=== PATIENT | female | born 1945 | race Caucasian/White ===

== ENCOUNTER 2021-05-24 13:02 | Emergency (ER) | payer OTHER ==
[2021-05-24 16:38] VITALS: BP 140/78; PULSE 78; TEMP 96.7; BMI 32.9
[2021-05-24 17:14] LABS: BASO % 0.9 % (0-2.0); EOS % 5.2 % (0-4.5); HEMOGLOBIN 11.3 GM/dL (10.7-15.3); LYMPH % 15.4 % (8-40); MCH 31.8 pg (25.7-33.7); MCHC 34.1 g/dl (32.0-36.0); MEAN CELL VOLUME 93.3 fl (80-96); MEAN PLT VOLUME 9.2 fl (7.5-11.1); MONO % 5.3 % (3.8-10.2); NEUT % 73.2 % (42.8-82.8); PLATELET COUNT 283 10^3/uL (134-434); RBC 3.54 M/mm3 (3.60-5.2); RDW 13.2 % (11.6-15.6); WHITE BLOOD COUNT 9.2 K/mm3 (4.0-10.0)
[2021-05-24 17:28] LABS: CHLORIDE 105 mmol/L (98-107); SODIUM 140 mmol/L (136-145)
[2021-05-24 17:31] LABS: ALBUMIN 4.1 g/dl (3.4-5.0); ANION GAP 9 MMOL/L (8-16); BLOOD UREA NITROGEN 30.1 mg/dL (7-18); CALCIUM 9.9 mg/dL (8.5-10.1); CO2 26 mmol/L (21-32); GLUCOSE,RANDOM 87 mg/dL (74-106)
[2021-05-24 17:35] LABS: BILIRUBIN,TOTAL 0.2 mg/dL (0.2-1); CREATININE 1.4 mg/dL (0.55-1.3); SGOT/AST 21 U/L (15-37); SGPT/ALT 34 U/L (13-61)
[2021-05-24 17:36] LABS: TOT PROT 7.5 g/dl (6.4-8.2)
[2021-05-24 17:37] LABS: ALK PHOS 156 U/L (45-117)
[2021-05-24] MEDS ORDERED: SODIUM CHLORIDE 0.9% 500 ML INFUS.BAG IV ONE (17:43)
[2021-05-24] MEDS ORDERED: ACETAMINOPHEN 1000 MG/100 ML VIAL (NON FORMULARY) IVPB ONE (18:08)
[2021-05-24] MEDS ORDERED: ACETAMINOPHEN INJECTION 100 ML IVPB ONE (18:09)
[2021-05-24] MEDS ORDERED: LIDOCAINE HCL 2% JELLY 10 ML CARTRIDGE ONE (18:19)
[2021-05-24 18:45] LABS: CALCIUM 9.9 mg/dL (8.5-10.1)
[2021-05-24 18:46] LABS: ALBUMIN 3.9 g/dl (3.4-5.0); BLOOD UREA NITROGEN 27.3 mg/dL (7-18)
[2021-05-24 18:48] LABS: PH,URINE 7.5 (5.0-8.0); URINE APPEARANCE CLEAR; URINE BILIRUBIN NEGATIVE (NEGATIVE); URINE COLOR YELLOW; URINE GLUCOSE (UA) NEGATIVE (NEGATIVE); URINE KETONE NEGATIVE (NEGATIVE); URINE LEUK ESTERASE NEGATIVE (NEGATIVE); URINE NITRITE NEGATIVE (NEGATIVE); URINE PROTEIN NEGATIVE (NEGATIVE); URINE UROBILINOGEN 0.2 mg/dL (0.2-1.0)
[2021-05-24 18:49] LABS: CREATININE 1.3 mg/dL (0.55-1.3)
[2021-05-24 18:51] LABS: BILIRUBIN,TOTAL 0.2 mg/dL (0.2-1); TOT PROT 7.1 g/dl (6.4-8.2)
== END 2021-05-25 03:56 ==
LOC: JER 13:02
PROC: 3E0333Z Introduction of Anti-inflammatory into Peripheral Vein, Percutaneous Approach (ICD-10-PCS; principal; 2021-05-24)
DX: M79.605 Pain in left leg (principal); W06.XXXA Fall from bed, initial encounter; Y93.84 Activity, sleeping
CPT/HCPCS: 36415; 71045-TC-FY; 73700-TC-RT; 80053; 81003; 82550; 84484; 85025; 87086; 87186; 93005; 93010; 99285-25; J0131

== ENCOUNTER 2023-05-17 18:30 | Inpatient (IN) | payer OTHER ==
[2023-05-17] MEDS ORDERED: ACETAMINOPHEN 1000 MG/100 ML BAG IVPB ONE (19:45)
[2023-05-17] MEDS ORDERED: FAMOTIDINE 20 MG/50 ML IVPB 20 MG/50 ML MG IVPB ONE ×2 (19:56→20:47)
[2023-05-17] MEDS ORDERED: MAG HYDROX/AL HYDROX/SIMETH 30 ML UNIT-DOSE CUP PO ONE (19:56)
[2023-05-17] MEDS ORDERED: ONDANSETRON 4 MG/2 ML VIAL IVPUSH ONE (19:56)
[2023-05-17] MEDS ORDERED: ACETAMINOPHEN INJECTION 100 ML IVPB ONE (20:47)
[2023-05-17] MEDS ORDERED: MAG HYDROX/AL HYDROX/SIMETH 30 ML UNIT-DOSE CUP ONE (20:47)
[2023-05-17] MEDS ORDERED: ONDANSETRON 4 MG/2 ML VIAL ONE (20:47)
[2023-05-17 21:01] LABS: BASO % 0.7 % (0-2.0); EOS % 1.5 % (0-4.5); HEMATOCRIT 35.6 % (32.4-45.2); HEMOGLOBIN 11.9 GM/dL (10.7-15.3); LYMPH % 9.5 % (8-40); MCH 30.2 pg (25.7-33.7); MCHC 33.6 g/dl (32.0-36.0); MEAN CELL VOLUME 89.9 fl (80-96); MEAN PLT VOLUME 9.1 fl (7.5-11.1); MONO % 3.7 % (3.8-10.2); NEUT % 84.6 % (42.8-82.8); PLATELET COUNT 327 10^3/uL (134-434); RBC 3.96 M/mm3 (3.60-5.2); RDW 13.4 % (11.6-15.6); WHITE BLOOD COUNT 13.3 K/mm3 (4.0-10.0)
[2023-05-17 21:30] LABS: POTASSIUM 4.4 mmol/L (3.5-5.1)
[2023-05-17 21:32] LABS: ALBUMIN 3.9 g/dl (3.4-5.0); CALCIUM 10.1 mg/dL (8.5-10.1)
[2023-05-17 21:35] LABS: CREATININE 1.2 mg/dL (0.55-1.3)
[2023-05-17 21:37] LABS: BILIRUBIN,TOTAL 0.4 mg/dL (0.2-1); TOT PROT 7.6 g/dl (6.4-8.2)
[2023-05-17] MEDS ORDERED: morphine CARPU-JECT 4 MG/1 ML DISP.SYRIN IVPUSH ONE (21:55)
[2023-05-17] MEDS ORDERED: morphine SULFATE 4 MG/ML VIAL ONE (22:25)
[2023-05-17 22:58] LABS: EPI CELLS 10 /uL (0-25.1); HYALINE CASTS 0 /uL (0-3.1); URINE APPEARANCE CLEAR; URINE BACTERIA 5978 /uL (0-1359); URINE BILIRUBIN NEGATIVE (NEGATIVE); URINE COLOR YELLOW; URINE GLUCOSE (UA) NEGATIVE (NEGATIVE); URINE KETONE 2+ (NEGATIVE); URINE LEUK ESTERASE NEGATIVE (NEGATIVE); URINE NITRITE POSITIVE (NEGATIVE); URINE PROTEIN NEGATIVE (NEGATIVE); URINE RBC 34 /uL (0-23.9); URINE UROBILINOGEN 0.2 mg/dL (0.2-1.0); URINE WBC 17 /uL (0-25.8)
[2023-05-18] MEDS ORDERED: CEFTRIAXONE 1 GM/50 ML BAG ONE (05:00)
[2023-05-18] MEDS ORDERED: ACETAMINOPHEN 1000 MG/100 ML BAG IVPB PRN (08:07)
[2023-05-18] MEDS: ESCITALOPRAM OXALATE 10 MG TABLET PO SCH (11:11)
[2023-05-18] MEDS: LEVOTHYROXINE NA 50 MCG TABLET (FP) PO SCH (11:11)
[2023-05-18] MEDS: SODIUM CHLORIDE 0.9%/KCL 20 MEQ/1,000 ML INFUS.BAG IV SCH (11:12)
[2023-05-18] MEDS ORDERED: ONDANSETRON 4 MG/2 ML VIAL IVPUSH PRN (11:37)
[2023-05-18] MEDS: buPROPion HCL 100 MG TABLET PO SCH ×2 (12:28→21:18)
[2023-05-18 12:36] LABS: BASO % 0.6 % (0-2.0); EOS % 1.4 % (0-4.5); HEMATOCRIT 33.5 % (32.4-45.2); LYMPH % 9.7 % (8-40); MCHC 32.9 g/dl (32.0-36.0); MEAN PLT VOLUME 9.3 fl (7.5-11.1); MONO % 4.6 % (3.8-10.2); NEUT % 83.7 % (42.8-82.8); PLATELET COUNT 313 10^3/uL (134-434); RBC 3.68 M/mm3 (3.60-5.2); RDW 13.3 % (11.6-15.6); WHITE BLOOD COUNT 10.6 K/mm3 (4.0-10.0)
[2023-05-18 13:02] LABS: POTASSIUM 4.4 mmol/L (3.5-5.1)
[2023-05-18 13:04] LABS: ALBUMIN 3.7 g/dl (3.4-5.0); BLOOD UREA NITROGEN 14.1 mg/dL (7-18); CALCIUM 10.1 mg/dL (8.5-10.1)
[2023-05-18 13:08] LABS: CREATININE 1.2 mg/dL (0.55-1.3)
[2023-05-18 13:09] LABS: BILIRUBIN,TOTAL 0.3 mg/dL (0.2-1)
[2023-05-18] MEDS: CEFTRIAXONE 2 GM in DEXTROSE 5%-WATER 100 ML IVPB SCH (14:46)
[2023-05-18 15:32] VITALS: BMI 40.1
[2023-05-18] MEDS ORDERED: VANCOMYCIN/WATER FOR INJ (PEG) 1,000 MG/200 ML BAG IVPB ONE (16:00)
[2023-05-18] MEDS: morphine SULFATE 4 MG/ML VIAL IVPUSH PRN ×2 (16:58→23:12)
[2023-05-18] MEDS: MELATONIN 5 MG TABLETS PO SCH (21:18)
[2023-05-19] MEDS: morphine SULFATE 4 MG/ML VIAL IVPUSH PRN ×3 (05:17→20:52)
[2023-05-19] MEDS ORDERED: LORazepam 2 MG/ML SDV VIAL IVPUSH ONE (05:59)
[2023-05-19] MEDS: LEVOTHYROXINE NA 50 MCG TABLET (FP) PO SCH (07:00)
[2023-05-19] MEDS: SODIUM CHLORIDE 0.9%/KCL 20 MEQ/1,000 ML INFUS.BAG IV SCH ×2 (08:59→20:36)
[2023-05-19] MEDS: ESCITALOPRAM OXALATE 10 MG TABLET PO SCH (09:48)
[2023-05-19] MEDS: CEFTRIAXONE 2 GM in DEXTROSE 5%-WATER 100 ML IVPB SCH (09:48)
[2023-05-19] MEDS ORDERED: clonazePAM 0.5 MG TABLET PO SCH ×4 (10:00→22:00)
[2023-05-19 10:46] LABS: BASO % 0.6 % (0-2.0); EOS % 2.9 % (0-4.5); HEMATOCRIT 34.3 % (32.4-45.2); HEMOGLOBIN 11.3 GM/dL (10.7-15.3); LYMPH % 13.1 % (8-40); MCH 30.9 pg (25.7-33.7); MCHC 33.1 g/dl (32.0-36.0); MEAN CELL VOLUME 93.5 fl (80-96); MEAN PLT VOLUME 9.9 fl (7.5-11.1); MONO % 5.5 % (3.8-10.2); NEUT % 77.9 % (42.8-82.8); PLATELET COUNT 275 10^3/uL (134-434); RBC 3.67 M/mm3 (3.60-5.2); RDW 13.3 % (11.6-15.6); WHITE BLOOD COUNT 9.5 K/mm3 (4.0-10.0)
[2023-05-19 10:59] LABS: POTASSIUM 4.3 mmol/L (3.5-5.1)
[2023-05-19 11:02] LABS: ALBUMIN 3.7 g/dl (3.4-5.0); BLOOD UREA NITROGEN 11.1 mg/dL (7-18); CALCIUM 9.4 mg/dL (8.5-10.1)
[2023-05-19 11:04] LABS: CREATININE 1.1 mg/dL (0.55-1.3)
[2023-05-19 11:06] LABS: BILIRUBIN,TOTAL 0.1 mg/dL (0.2-1); TOT PROT 7.1 g/dl (6.4-8.2)
[2023-05-19] MEDS: clonazePAM 0.5 MG TABLET PO SCH (21:42)
[2023-05-19] MEDS: MELATONIN 5 MG TABLETS PO SCH (21:42)
[2023-05-20] MEDS ORDERED: morphine SULFATE 4 MG/ML VIAL IVPUSH ONE (01:25)
[2023-05-20] MEDS ORDERED: ACETAMINOPHEN 1000 MG/100 ML BAG IVPB ONE (05:40)
[2023-05-20] MEDS: morphine SULFATE 4 MG/ML VIAL IVPUSH PRN ×3 (05:45→18:54)
[2023-05-20] MEDS: LEVOTHYROXINE NA 50 MCG TABLET (FP) PO SCH (06:42)
[2023-05-20 09:01] LABS: BASO % 0.5 % (0-2.0); EOS % 2.7 % (0-4.5); HEMATOCRIT 32.3 % (32.4-45.2); HEMOGLOBIN 10.8 GM/dL (10.7-15.3); LYMPH % 12.1 % (8-40); MCH 30.5 pg (25.7-33.7); MCHC 33.4 g/dl (32.0-36.0); MEAN CELL VOLUME 91.2 fl (80-96); MEAN PLT VOLUME 9.1 fl (7.5-11.1); MONO % 6.4 % (3.8-10.2); NEUT % 78.3 % (42.8-82.8); PLATELET COUNT 282 10^3/uL (134-434); RBC 3.54 M/mm3 (3.60-5.2); RDW 13.8 % (11.6-15.6); WHITE BLOOD COUNT 8.8 K/mm3 (4.0-10.0)
[2023-05-20] MEDS: CEFTRIAXONE 2 GM in DEXTROSE 5%-WATER 100 ML IVPB SCH (09:17)
[2023-05-20 09:18] LABS: POTASSIUM 4.6 mmol/L (3.5-5.1)
[2023-05-20] MEDS: ESCITALOPRAM OXALATE 10 MG TABLET PO SCH (09:18)
[2023-05-20] MEDS: clonazePAM 0.5 MG TABLET PO SCH ×2 (09:18→21:28)
[2023-05-20 09:20] LABS: CALCIUM 9.6 mg/dL (8.5-10.1)
[2023-05-20 09:21] LABS: ALBUMIN 3.4 g/dl (3.4-5.0); BLOOD UREA NITROGEN 11.1 mg/dL (7-18)
[2023-05-20 09:25] LABS: BILIRUBIN,TOTAL 0.3 mg/dL (0.2-1); TOT PROT 6.7 g/dl (6.4-8.2)
[2023-05-20] MEDS: MELATONIN 5 MG TABLETS PO SCH (21:28)
[2023-05-21] MEDS: SODIUM CHLORIDE 0.9%/KCL 20 MEQ/1,000 ML INFUS.BAG IV SCH (00:33)
[2023-05-21] MEDS: morphine SULFATE 4 MG/ML VIAL IVPUSH PRN ×2 (00:54→07:04)
[2023-05-21] MEDS ORDERED: ONDANSETRON 4 MG/2 ML VIAL IVPUSH ONE (01:05)
[2023-05-21] MEDS: LEVOTHYROXINE NA 50 MCG TABLET (FP) PO SCH (08:36)
[2023-05-21 10:29] LABS: BASO % 0.8 % (0-2.0); EOS % 0.5 % (0-4.5); HEMATOCRIT 34.1 % (32.4-45.2); HEMOGLOBIN 11.2 GM/dL (10.7-15.3); LYMPH % 7.4 % (8-40); MCH 30.4 pg (25.7-33.7); MCHC 32.8 g/dl (32.0-36.0); MEAN CELL VOLUME 92.8 fl (80-96); MEAN PLT VOLUME 9.5 fl (7.5-11.1); MONO % 3.2 % (3.8-10.2); NEUT % 88.1 % (42.8-82.8); PLATELET COUNT 304 10^3/uL (134-434); RBC 3.67 M/mm3 (3.60-5.2); RDW 13.8 % (11.6-15.6); WHITE BLOOD COUNT 11.7 K/mm3 (4.0-10.0)
[2023-05-21 10:47] LABS: POTASSIUM 4.6 mmol/L (3.5-5.1)
[2023-05-21 10:50] LABS: BLOOD UREA NITROGEN 8.4 mg/dL (7-18); CALCIUM 10.2 mg/dL (8.5-10.1)
[2023-05-21 10:51] LABS: ALBUMIN 3.8 g/dl (3.4-5.0)
[2023-05-21 10:54] LABS: BILIRUBIN,TOTAL 0.4 mg/dL (0.2-1); CREATININE 1.1 mg/dL (0.55-1.3); TOT PROT 7.3 g/dl (6.4-8.2)
[2023-05-21] MEDS ORDERED: TRIMETHOBENZAMIDE HCL 200MG/2ML INJ IM PRN (11:31)
[2023-05-21] MEDS: CEFTRIAXONE 2 GM in DEXTROSE 5%-WATER 100 ML IVPB SCH (11:59)
[2023-05-21] MEDS: clonazePAM 0.5 MG TABLET PO SCH ×2 (11:59→21:20)
[2023-05-21] MEDS: ESCITALOPRAM OXALATE 10 MG TABLET PO SCH (11:59)
[2023-05-21] MEDS: PANTOPRAZOLE SODIUM 40 MG VIAL IVPUSH SCH ×2 (13:14→21:21)
[2023-05-21] MEDS: D5-1/2NS+10 MEQ KCL - 10 MEQ/1,000 ML INFUS.BAG IV SCH (17:26)
[2023-05-21] MEDS: HYDROmorphone HCl 2 MG/ML VIAL IVPB PRN (18:36)
[2023-05-21] MEDS: MELATONIN 5 MG TABLETS PO SCH (21:20)
[2023-05-22] MEDS: SODIUM CHLORIDE 0.9%/KCL 20 MEQ/1,000 ML INFUS.BAG IV SCH (03:03)
[2023-05-22] MEDS: HYDROmorphone HCl 2 MG/ML VIAL IVPB PRN ×3 (04:26→21:46)
[2023-05-22] MEDS: LEVOTHYROXINE NA 50 MCG TABLET (FP) PO SCH (06:26)
[2023-05-22 09:23] LABS: BASO % 0.7 % (0-2.0); HEMATOCRIT 30.6 % (32.4-45.2); HEMOGLOBIN 10.2 GM/dL (10.7-15.3); MCH 30.2 pg (25.7-33.7); MCHC 33.5 g/dl (32.0-36.0); MEAN CELL VOLUME 90.3 fl (80-96); MEAN PLT VOLUME 9.2 fl (7.5-11.1); MONO % 5.5 % (3.8-10.2); NEUT % 82.8 % (42.8-82.8); PLATELET COUNT 294 10^3/uL (134-434); RBC 3.39 M/mm3 (3.60-5.2); RDW 13.9 % (11.6-15.6)
[2023-05-22] MEDS: ESCITALOPRAM OXALATE 10 MG TABLET PO SCH (09:29)
[2023-05-22] MEDS: clonazePAM 0.5 MG TABLET PO SCH ×2 (09:29→21:45)
[2023-05-22 09:44] LABS: POTASSIUM 4.4 mmol/L (3.5-5.1)
[2023-05-22 09:47] LABS: ALBUMIN 3.6 g/dl (3.4-5.0); BLOOD UREA NITROGEN 8.1 mg/dL (7-18); CALCIUM 9.6 mg/dL (8.5-10.1)
[2023-05-22 09:51] LABS: CREATININE 1.1 mg/dL (0.55-1.3)
[2023-05-22 09:52] LABS: BILIRUBIN,TOTAL 0.4 mg/dL (0.2-1); TOT PROT 6.6 g/dl (6.4-8.2)
[2023-05-22] MEDS: D5-1/2NS+10 MEQ KCL - 10 MEQ/1,000 ML INFUS.BAG IV SCH ×2 (11:26→17:37)
[2023-05-22] MEDS: CEFTRIAXONE 2 GM in DEXTROSE 5%-WATER 100 ML IVPB SCH (11:26)
[2023-05-22] MEDS: PANTOPRAZOLE SODIUM 40 MG VIAL IVPUSH SCH ×2 (11:27→21:45)
[2023-05-22] MEDS: POLYETHYLENE GLYCOL (HEALTHYLAX) 3350 17 GM PACKET PO SCH ×2 (13:30→21:45)
[2023-05-22] MEDS: MELATONIN 5 MG TABLETS PO SCH (21:46)
[2023-05-23] MEDS: D5-1/2NS+10 MEQ KCL - 10 MEQ/1,000 ML INFUS.BAG IV SCH ×2 (01:05→15:57)
[2023-05-23] MEDS: HYDROmorphone HCl 2 MG/ML VIAL IVPB PRN ×3 (05:40→19:49)
[2023-05-23] MEDS: POLYETHYLENE GLYCOL (HEALTHYLAX) 3350 17 GM PACKET PO SCH ×3 (06:13→22:14)
[2023-05-23] MEDS: LEVOTHYROXINE NA 50 MCG TABLET (FP) PO SCH (06:14)
[2023-05-23 08:48] LABS: HEMATOCRIT 30.3 % (32.4-45.2); MCH 30.7 pg (25.7-33.7); MEAN CELL VOLUME 92.8 fl (80-96); MEAN PLT VOLUME 9.7 fl (7.5-11.1); PLATELET COUNT 289 10^3/uL (134-434); RBC 3.27 M/mm3 (3.60-5.2); RDW 13.9 % (11.6-15.6); WHITE BLOOD COUNT 7.8 K/mm3 (4.0-10.0)
[2023-05-23 09:14] LABS: ALBUMIN 3.4 g/dl (3.4-5.0); CALCIUM 9.7 mg/dL (8.5-10.1); MAGNESIUM 1.9 mg/dL (1.8-2.4)
[2023-05-23 09:19] LABS: BILIRUBIN,TOTAL 0.2 mg/dL (0.2-1); TOT PROT 6.3 g/dl (6.4-8.2)
[2023-05-23] MEDS: CEFTRIAXONE 2 GM in DEXTROSE 5%-WATER 100 ML IVPB SCH (11:00)
[2023-05-23] MEDS: PANTOPRAZOLE SODIUM 40 MG VIAL IVPUSH SCH ×2 (11:02→22:12)
[2023-05-23] MEDS: clonazePAM 0.5 MG TABLET PO SCH ×2 (11:02→22:13)
[2023-05-23] MEDS: ESCITALOPRAM OXALATE 10 MG TABLET PO SCH (11:02)
[2023-05-23 15:18] VITALS: RESP 18
[2023-05-23] MEDS: MELATONIN 5 MG TABLETS PO SCH (22:14)
[2023-05-24] MEDS: HYDROmorphone HCl 2 MG/ML VIAL IVPB PRN (05:42)
[2023-05-24] MEDS: LEVOTHYROXINE NA 50 MCG TABLET (FP) PO SCH (06:34)
[2023-05-24] MEDS: POLYETHYLENE GLYCOL (HEALTHYLAX) 3350 17 GM PACKET PO SCH ×3 (06:35→21:53)
[2023-05-24] MEDS: PANTOPRAZOLE 40 MG TABLET PO SCH (11:00)
[2023-05-24] MEDS: metoPROLOL SUCCINATE 25 MG TAB.SR.24H (FP) PO SCH (11:00)
[2023-05-24] MEDS: clonazePAM 0.5 MG TABLET PO SCH ×2 (11:00→21:49)
[2023-05-24] MEDS: CEFTRIAXONE 2 GM in DEXTROSE 5%-WATER 100 ML IVPB SCH (11:00)
[2023-05-24] MEDS: ESCITALOPRAM OXALATE 10 MG TABLET PO SCH (11:00)
[2023-05-24] MEDS ORDERED: traMADol HCL 50 MG TABLET PO PRN (16:40)
[2023-05-24] MEDS ORDERED: TRIMETHOBENZAMIDE HCL 200MG/2ML INJ IM PRN (21:06)
[2023-05-24] MEDS: MAG HYDROX/AL HYDROX/SIMETH 30 ML UNIT-DOSE CUP PO PRN (21:44)
[2023-05-24] MEDS: MELATONIN 5 MG TABLETS PO SCH (21:49)
[2023-05-24] MEDS ORDERED: SENNOSIDES 8.6MG TABLET (FP) PO SCH (22:00)
[2023-05-25] MEDS: LEVOTHYROXINE NA 50 MCG TABLET (FP) PO SCH (06:23)
[2023-05-25] MEDS: POLYETHYLENE GLYCOL (HEALTHYLAX) 3350 17 GM PACKET PO SCH ×3 (06:24→14:42)
[2023-05-25] MEDS: metoPROLOL SUCCINATE 25 MG TAB.SR.24H (FP) PO SCH (10:51)
[2023-05-25] MEDS: PANTOPRAZOLE 40 MG TABLET PO SCH (10:51)
[2023-05-25] MEDS: ESCITALOPRAM OXALATE 10 MG TABLET PO SCH (10:51)
[2023-05-25] MEDS: clonazePAM 0.5 MG TABLET PO SCH (10:51)
[2023-05-25] MEDS: MAG HYDROX/AL HYDROX/SIMETH 30 ML UNIT-DOSE CUP PO PRN (14:42)
[2023-05-25 14:50] VITALS: BP 129/79; PULSE 78; TEMP 99.2
== END 2023-05-25 17:03 | DRG 690 ==
LOC: JER 18:30 → JERBED 05-18 04:49 → J8W 05-18 09:16 → J5S 05-23 03:43
PROVIDERS: ADMIT Internal Medicine; ATTEND Family Medicine
DX: N39.0 Urinary tract infection, site not specified (principal); Z68.41 Body mass index [BMI] 40.0-44.9, adult; G40.89 Other seizures; G11.4 Hereditary spastic paraplegia; B96.20 Unspecified Escherichia coli [E. coli] as the cause of diseases classified elsewhere; I10 Essential (primary) hypertension; E11.9 Type 2 diabetes mellitus without complications; E78.5 Hyperlipidemia, unspecified; F41.8 Other specified anxiety disorders; E03.9 Hypothyroidism, unspecified; M62.81 Muscle weakness (generalized); K21.9 Gastro-esophageal reflux disease without esophagitis; G35 Multiple sclerosis; G20 Parkinson's disease; K59.00 Constipation, unspecified; E66.01 Morbid (severe) obesity due to excess calories; K81.9 Cholecystitis, unspecified; Z88.0 Allergy status to penicillin; D72.829 Elevated white blood cell count, unspecified; R10.84 Generalized abdominal pain; N63.0 Unspecified lump in unspecified breast; G51.4 Facial myokymia; K42.9 Umbilical hernia without obstruction or gangrene
CPT/HCPCS: 36415; 70450-TC; 71045-TC-FY; 71260-TC; 74018-TC-FY; 74174-TC; 74177-TC; 76705-TC; 80053; 81003; 82150; 82962; 82977; 83605; 83690; 83735; 84484; 85025; 85027; 87040; 87086; 87186; 87635; 93005; 93010; 94010; 97161-GP; 99285-25

== ENCOUNTER 2023-07-28 08:24 | Day surgery (SDC) | payer OTHER ==
[2023-07-26 15:47] VITALS: BMI 29.6
[2023-07-28 09:55] VITALS: BP 116/67; PULSE 75; RESP 18; TEMP 97.7
== END 2023-07-28 10:02 | disposition home or self-care (01) ==
LOC: FASU-ENDO 08:24
PROVIDERS: ATTEND Internal Medicine Gastroenterology
PROC: 0DB68ZX Excision of Stomach, Via Natural or Artificial Opening Endoscopic, Diagnostic (ICD-10-PCS; 2023-07-28)
PROC: 0DB48ZX Excision of Esophagogastric Junction, Via Natural or Artificial Opening Endoscopic, Diagnostic (ICD-10-PCS; 2023-07-28)
PROC: 0DB98ZX Excision of Duodenum, Via Natural or Artificial Opening Endoscopic, Diagnostic (ICD-10-PCS; principal; 2023-07-28 08:59)
DX: K26.9 Duodenal ulcer, unspecified as acute or chronic, without hemorrhage or perforation (principal); K29.50 Unspecified chronic gastritis without bleeding; K20.90 Esophagitis, unspecified without bleeding; R10.13 Epigastric pain
CPT/HCPCS: 88305-TC

== ENCOUNTER 2023-09-15 08:03 | Day surgery (SDC) | payer OTHER ==
[2023-09-11 16:40] VITALS: BMI 29.6
[2023-09-15] MEDS ORDERED: PROPOFOL 160 ML ONE (08:05)
[2023-09-15 10:32] VITALS: RESP 16; TEMP 98
[2023-09-15 10:38] VITALS: BP 121/49; PULSE 78
== END 2023-09-15 10:45 ==
LOC: FASU-ENDO 08:03
PROVIDERS: ATTEND Internal Medicine Gastroenterology
PROC: 0DB68ZX Excision of Stomach, Via Natural or Artificial Opening Endoscopic, Diagnostic (ICD-10-PCS; 2023-09-15)
PROC: 0DBN8ZX Excision of Sigmoid Colon, Via Natural or Artificial Opening Endoscopic, Diagnostic (ICD-10-PCS; principal; 2023-09-15 09:20)
DX: Z12.11 Encounter for screening for malignant neoplasm of colon (principal); K63.5 Polyp of colon; K64.1 Second degree hemorrhoids; K29.50 Unspecified chronic gastritis without bleeding; Z86.010 Personal history of colon polyps; Z13.810 Encounter for screening for upper gastrointestinal disorder
CPT/HCPCS: 88305-TC; 88342-TC